=== PATIENT | female | born 1960 | race Caucasian/White ===

== ENCOUNTER 2018-11-18 13:22 | Emergency (ER) | payer OTHER ==
[2018-11-18 13:46] VITALS: BP 121/81
--- NOTE | 2018-11-18 13:55 | UC ---
Skin Complaint HPI - HPI Summary HPI Summary: right arm / elbow swelling x 4 days had a insect bite on her right arm 4 days ago no the area/ right elbow and lower arm is swollen, mild pain , itchy has been taking Benadryl with some improvement no fever, no chill , no sob - History of Current Complaint Chief Complaint: UCSkin Time Seen by Provider: 11/18/18 13:40 Stated Complaint: RIGHT ELBOW,SKIN COMPLAINT Hx Obtained From: Patient ?: No Onset/Duration: Gradual Onset, Lasting Days - 4, Still Present Onset Severity: Mild Current Severity: Moderate Pain Intensity: 0 Location: Discrete - right elbow / right lower arm Character: Swelling, Pruritus, Redness, Raised Aggravating Factor(s): Touch Alleviating Factor(s): Cold, Antihistamines Associated Signs & Symptoms: Positive: Numbness, Rash. Negative: Nausea, Vomiting, Thirst, Diaphoresis, Weakness, Pallor, Shivering, Difficulty Breathing , Fever, Chills, Wheezing, Chest Pain, Tenderness, Red Streaks Related History: Insect Bite/Sting - Allergy/Home Medications Allergies/Adverse Reactions: Allergies Allergy/AdvReac Type Severity Reaction Status Date / Time No Known Allergies Allergy Verified 11/18/18 13:39 Home Medications: Home Medications Estrogens, Conjugated [Premarin] 1 applic WEEKLY 11/18/18 [History Confirmed ] PMH/Surg Hx/FS Hx/Imm Hx Previously Healthy: Yes - Surgical History Surgical History: Yes Surgery Procedure, Year, and Place: Laparoscopy - Family History Known Family History: Negative: Diabetes - Social History Alcohol Use: Daily Substance Use Type: None Smoking Status (MU): Former Smoker Review of Systems All Other Systems Reviewed And Are Negative: Yes Constitutional: Positive: Negative Skin: Positive: Rash Eyes: Positive: Negative ENT: Positive: Negative Respiratory: Positive: Negative Cardiovascular: Positive: Negative Is Patient Immunocompromised?: No Physical Exam Triage Information Reviewed: Yes Appearance: Well-Appearing, No Pain Distress, Well-Nourished Vital Signs: Initial Vital Signs Temp 98.4 F 11/18/18 13:41 Pulse 74 11/18/18 13:41 Resp 16 11/18/18 13:41 BP 121/81 11/18/18 13:41 Pulse Ox 100 11/18/18 13:41 Vital Signs Reviewed: Yes Eye Exam: Normal Eyes: Positive: Conjunctiva Clear ENT: Positive: Normal ENT inspection, Hearing grossly normal, Pharynx normal Neck: Positive: Supple, Nontender, No Lymphadenopathy Respiratory: Positive: Chest non-tender, Lungs clear, Normal breath sounds Cardiovascular: Positive: RRR, No Murmur, Pulses Normal Neurological Exam: Normal Neurological: Positive: Alert Skin: Positive: Rashes - right arm / elbow : + erythem , swelling, no tederness Course/Dx - Diagnoses Provider Diagnosis: Insect bite of right arm Discharge - Sign-Out/Discharge Documenting (check all that apply): Patient Departure All imaging exams completed and their final reports reviewed: No Studies - Discharge Plan Condition: Stable Disposition: HOME Prescriptions: predniSONE [Prednisone 20 MG TAB] 20 mg PO BID #10 tablet Patient Education Materials: Insect Bite or Sting (ED) Referrals: Cailin Maldonado MD [Primary Care Provider] - If Needed - Billing Disposition and Condition Condition: STABLE Disposition: Home
== END 2018-11-18 14:11 | disposition home or self-care (01) ==
LOC: UCCORT 13:22
DX: S50.361A Insect bite (nonvenomous) of right elbow, initial encounter (principal); W57.XXXA Bitten or stung by nonvenomous insect and other nonvenomous arthropods, initial encounter; Y92.9 Unspecified place or not applicable; Z87.891 Personal history of nicotine dependence
CPT/HCPCS: 99212; G0463